=== PATIENT | female | born 2000 | race Two or more races ===

== ENCOUNTER 2024-02-27 00:25 | Inpatient (IN) ==
[2024-02-27] MEDS: LR 1,000 ML IV 1,000 ML IV SCH (01:00)
[2024-02-27] MEDS ORDERED: REGLAN INJ 10 MG VIAL IVP PRN (01:15)
[2024-02-27] MEDS ORDERED: ZOFRAN INJ 4 MG VIAL IVP PRN (01:15)
[2024-02-27 01:18] LABS: BASOPHILS # (AUTO) 0.1 X10^3/uL (0.0-0.1); BASOPHILS % (AUTO) 0.6 % (0.2-1.0); EOSINOPHILS % (AUTO) 0.1 % (0.9-2.9); HEMATOCRIT 40.1 % (36.0-47.0); HEMOGLOBIN 13.8 g/dL (12.0-16.0); LYMPHOCYTES % (AUTO) 7.7 % (21.0-51.0); MEAN CORPUSCULAR HEMOGLOBIN 31.4 pg (27.0-34.0); MEAN CORPUSCULAR HGB CONC 34.4 g/dL (33.0-35.0); MEAN CORPUSCULAR VOLUME 91.2 fL (80.0-100.0); MEAN PLATELET VOLUME 9.3 fL (7.4-11.0); MONOCYTES # (AUTO) 0.5 x10^3/uL (0.3-0.8); MONOCYTES % (AUTO) 4.2 % (0.0-13.0); NEUTROPHILS % (AUTO) 87.4 % (42.0-75.0); PLATELET COUNT 324 X10^3/uL (150.0-450.0); RED CELL DISTRIBUTION WIDTH 13.5 % (11.6-16.5); WHITE BLOOD COUNT 12.6 X10^3/uL (3.6-10.0)
[2024-02-27] MEDS: NUBAIN INJ 20 MG AMP IVP PRN (01:18)
[2024-02-27 01:20] LABS: BILIRUBIN,URINE 2+ (NEGATIVE); BLOOD/HEMOGLOBIN,URINE 5+ (NEGATIVE); GLUCOSE, URINE NEGATIVE (NEGATIVE); KETONES,URINE 3+ (NEGATIVE); LEUKOCYTE ESTERASE ,URINE 3+ (NEGATIVE); NITRITES,URINE NEGATIVE (NEGATIVE); PROTEIN,URINE 2+ (NEGATIVE); UROBILINOGEN,URINE 2+ (NORMAL)
[2024-02-27 01:29] LABS: AMNISURE ROM TEST NO MEMBRANES RUPTURE (NO RUPTURE)
[2024-02-27] MEDS: OXYTOCIN 20 UNIT/1,000 ML-NS 20 UNIT/1,000 ML PLAST..BAG IV PRN (01:30)
[2024-02-27 01:31] LABS: APPEARANCE,URINE CLOUDY (CLEAR); COLOR,URINE AMBER (YELLOW); RBC,URINE TNTC /HPF (0-3)
[2024-02-27 01:32] LABS: BACTERIA,URINE TRACE /HPF (NEGATIVE); SQUAMOUS EPITHELIAL CELL,UR MODERATE /HPF (NEGATIVE)
[2024-02-27 01:35] LABS: ALANINE AMINOTRANSFERASE 62 Units/L (12-78); ALBUMIN 2.5 g/dL (3.4-5.0); ALKALINE PHOSPHATASE 417 Units/L (46-116); ASPARTATE AMINO TRANSFERASE 59 Units/L (15-37); BLOOD UREA NITROGEN 9 mg/dL (7-18); CALCIUM 9.4 mg/dL (8.5-10.1); CARBON DIOXIDE 21.2 mmol/L (21-32); CHLORIDE 103 mmol/L (98-107); COR CA(FOR HYPOALB) 10.6 mg/dL (8.5-10.1); CREATININE 0.63 mg/dL (0.55-1.02); GLUCOSE 85 mg/dL (65-99); POTASSIUM 3.6 mmol/L (3.5-5.1); SODIUM 138 mmol/L (136-145); TOTAL PROTEIN 7.6 g/dL (6.4-8.2); eGFR NON BLACK RACES > 60 (>60)
[2024-02-27] MEDS: NUBAIN INJ 10 MG AMP ONE (01:44)
[2024-02-27] MEDS: PITOCIN ONE (01:44)
[2024-02-27] MEDS: PITOCIN IVP ONE (02:25)
[2024-02-27] MEDS ORDERED: MOTRIN TAB 800 MG PO PRN (02:50)
[2024-02-27] MEDS ORDERED: AMBIEN PO PRN (03:23)
[2024-02-27] MEDS ORDERED: MILK OF MAGNESIA PO PRN (03:23)
[2024-02-27] MEDS ORDERED: DERMOPLAST PAIN RELIEF SPRAY TOP PRN (03:23)
[2024-02-27] MEDS: XYLOCAINE 1 % (PLAIN) ONE (03:25)
[2024-02-27] MEDS: OXYTOCIN 20 UNIT/1,000 ML-NS 20 UNIT/1,000 ML PLAST..BAG IV SCH (03:26)
[2024-02-27 06:26] LABS: HEMATOCRIT 36.5 % (36.0-47.0); HEMOGLOBIN 12.4 g/dL (12.0-16.0)
[2024-02-27] MEDS: PRENATAL PLUS PO SCH (08:25)
[2024-02-27] MEDS: ADACEL or BOOSTRIX TDaP VACCINE IM ONE ×2 (12:08→12:13)
[2024-02-28 08:20] VITALS: RESP 18
[2024-02-28 12:06] VITALS: BP 122/81; PULSE 72; TEMP 97.9; O2SAT 99
== END 2024-02-28 14:40 | disposition home or self-care (01) | DRG 807 ==
LOC: ER 00:25 → LD 00:25 → OBSVTOIN 01:06 → LD 01:17 → MED/SURG 03:28
PROVIDERS: ADMIT Obstetrics & Gynecology Obstetrics; ATTEND Obstetrics & Gynecology Obstetrics